=== PATIENT | male | born 1960 | race American Indian/Alaskan Native ===

== ENCOUNTER 2024-12-29 18:13 | Emergency (ER) | payer OTHER, SELFPAY ==
[2024-12-29 18:14] VITALS: BMI 30.7
[2024-12-29 18:20] VITALS: BP 158/90; PULSE 92; RESP 17; TEMP 36.7; O2SAT 96
--- NOTE | 2024-12-29 18:20 | EDNOTE_ITS ---
ED Abdominal Pain RME/HPI General Chief Complaint: General Adult/Misc Complain Stated complaint: INTERMITTENT SHARP PAIN IN R) SIDE SINCE YESTERDAY Time seen by provider: 12/29/24 18:17 Arrival date/time: 12/29/24 18:13 Source: patient Limitations: no limitations RME / HPI RME / HPI narrative: Here today with intermittent right sided abdominal pain and nausea for one day. No emesis. No fevers, chills, or injury. No urinary frequency or dysuria. No hematuria. He has not had this before. No chronic illness. Related Data Previous Rx's ?Medication ?Instructions ?Recorded HYDROCODONE BITARTRATE/APAP 1 tab PO Q4-6HRPRN PRN NIKOLE N ##30 02/20/13 (Vicodin 5/500*) Ibuprofen * (MOTRIN *) 400 mg PO Q6-8HRPRN #30 tabs 02/20/13 ibuprofen 600 mg tablet 600 mg PO TID PRN pain #10 t abs 12/29/24 ondansetron 4 mg disintegrating 4 mg PO Q8H PRN nausea and 12/29/24 tablet vomiting 5 days #10 tabs tamsulosin 0.4 mg capsule (Flomax) 0.4 mg PO QDAY #30 caps 12/29/24 Allergies Allergy/AdvReac Type Severity Reaction Status Date / Time No Known Allergies Allergy Unknown Verified 12/29/24 18:16 Review of Systems Review of Systems Systems Reviewed: All systems reviewed, normal except as documented ED Exam General Limitations: Present no limitations General appearance: Present alert and in no apparent distress Head Head exam: Present atraumatic Eye Eye exam: Present normal appearance, PERRL and EOMI ENT ENT exam: Present normal exam, normal oropharynx and mucous membranes moist Neck Neck exam: Present normal inspection, full ROM and trachea midline Chest Chest inspection: Present normal inspection and symmetric chest wall rise Respiratory Respiratory exam: Present normal lung sounds bilaterally Cardiovascular Cardiovascular exam: Present regular rate, normal rhythm and normal heart sounds Abdominal Exam Abdominal exam: Present soft; Absent distention, tenderness or guarding Extremities Exam Extremities exam: Present normal inspection and full ROM Back Exam Back exam: Present normal inspection and full ROM; Absent CVA tenderness (R) or CVA tenderness (L) Neurological Exam Neurological exam: Present alert, oriented X3 and CN II-XII intact Psychiatric Psychiatric exam: Present normal affect and normal mood Skin Skin exam: Present warm, dry, intact and normal color Course Quality Measures none Orders Category Date Time Status CT abdomen pelvis wo con Stat Exams 12/29/24 20:47 Completed CBC Stat Lab 12/29/24 18:47 Completed CMP [Comprehensive Metabolic Panel] Stat Lab 12/29/24 18:47 Completed Lipase Stat Lab 12/29/24 18:47 Completed UA, C/S IF [Urinalysis, C/S if Indicated] Stat Lab 12/29/24 18:45 Completed Ketorolac Inj [Toradol Inj] Med 12/29/24 18:18 Discontinued 15 mg IM X1 ONE Sodium Chloride 0.9% 1000 ml [Ns] 1,000 ml Med 12/29/24 21:56 Active IV 999 mls/hr Tamsulosin HCl [Flomax] Med 12/29/24 20:48 Discontinued 0.4 mg PO X1 ONE Vital Signs Vital signs: Vital Signs Temperature 98.1 F 12/29/24 18:20 Pulse Rate 92 12/29/24 18:20 Respiratory Rate 17 12/29/24 18:20 Blood Pressure 158/90 H 12/29/24 18:20 Pulse Oximetry (%) 96 12/29/24 18:20 Oxygen Delivery Method Room Air 12/29/24 18:20 Abdominal Pain MDM MDM Narrative MDM Narrative:: Here today with intermittent right sided abdominal pain and nausea for one day. No emesis. No fevers, chills, or injury. No urinary frequency or dysuria. No hematuria. He has not had this before. No chronic illness. Patient had no CVA tenderness. He had no abdominal guarding or rebound tenderness. Workup revealed a very mild leukocytosis at 12.5k. His creatinine is 1.6, glucose is 153. He had microscopic hematuria with the erythrocytes at 417. At this point, a nonenhanced CT of the abdomen of the pelvis was obtained which revealed a 5 mm, right sided ureteral stone. Patient data External records reviewed:: None Clinical information provided by:: patient Social determinants that could affect healthcare access:: none Patient has the following chronic illnesses:: n/a How is presenting disease/condition affected by chronic disease/condition?: no chronic disease Evaluation data The following diagnostics were reviewed and interpreted by me:: lab results (Mild CRYSTAL with a creatinine at 1.6. Microscopic hematuria is present. He has a mild leukocytosis at 12.5k) and radiology exam(s) (CT confirms right-sided 5 m, urethral stone) Lab and/or radiology exams considered but not ordered:: n/a Interpretation Summary: Workup is consistent with CRYSTAL and right sided ureterolithiasis Medications / Prescriptions Medications or Prescriptions considered but not ordered:: n/a Medication administrations:: Medication Administration History Sodium Chloride (Ns) 1,000 mls @ 999 mls/hr IV .Q1H1M ONE Stop: 12/29/24 22:56 Discontinued Medications Ketorolac Tromethamine (Ketorolac Inj 60 Mg/2 Ml Vial) 15 mg IM X1 ONE Stop: 12/29/24 18:19 Last Admin: 12/29/24 19:06 Dose: 15 mg Documented By: KIM Tamsulosin HCl (Tamsulosin Hcl 0.4 Mg Capsule) 0.4 mg PO X1 ONE Stop: 12/29/24 20:49 Last Admin: 12/29/24 21:23 Dose: 0.4 mg Documented By: KIM See above Consultations Consultation(s) initiated? (list below): No Diagnosis Differential diagnosis abdominal pain: abdominal pain, calculus of kidney, constipation and gastroenteritis Most likely diagnosis given after review of the tests above:: Ureterolithiasis Admission Indicated Admission indicated?: indicated Admission Request Was there a request for admission?: No Disposition Plan Disposition Plan: Discharge Discharge Attestation Discharge Attestation: The patient and all family members were given an opportunity to ask questions and understood the discharge instructions. Discharge instructions specifically effects, indications for sooner follow up or return to the emergency department, and the expected course of current diagnosis. Patient condition: Stable Discharge Plan Plan Patient Disposition: HOME (Self Care) Patient condition on transfer: Stable Prescriptions/Referrals Prescriptions/Med Rec: New tamsulosin [Flomax] 0.4 mg capsule 0.4 mg PO QDAY Qty: 30 0RF ibuprofen 600 mg tablet 600 mg PO TID PRN (Reason: pain) Qty: 10 0RF ondansetron 4 mg tablet,disintegrating 4 mg PO Q8H PRN (Reason: nausea and vomiting) 5 Days Qty: 10 0RF No Action HYDROCODONE BITARTRATE/APAP (Vicodin 5/500*) 1 TAB tablet 1 tab PO Q4-6HRPRN PRN (Reason: PAIN) Qty: 30 0RF Ibuprofen * (MOTRIN *) 400 MG tablet 400 mg PO Q6-8HRPRN Qty: 30 0RF Rx Instructions: FOR FEVER OR PAIN Referrals: No Primary/Family,Physician [Primary Care Provider] - In 1 week Problem List Clinical Impression: Ureterolithiasis, CRYSTAL (acute kidney injury) Patient/Caregiver Discharge Instructions Education Materials: ED Kidney Stone w/ Colic Additional Instructions: - Increase oral hydration. - Use the provided medications as prescribed. - Please not hesitate to return anytime for any worsening or emergent changes. Print Language: Yi Stand Alone Forms: [facility]ora Award Info., Patient Portal Info Letter
[2024-12-29 18:51] LABS: Collection Type, Urine Voided
[2024-12-29] MEDS: KETOROLAC INJ 60 MG/2 ML VIAL 15 MG IM (19:06)
[2024-12-29 19:12] LABS: Basophils # (Auto) 0.1 Thou/mm3 (0.0-0.2); Basophils % (Auto) 0 % (0-2.5); Eosinophils # (Auto) 0.3 Thou/mm3 (0.0-0.5); Eosinophils % (Auto) 2 % (0-10); Hematocrit 43.0 % (41.0-53.0); Hemoglobin 14.9 g/dL (13.5-16.0); Immature Granulocytes Auto 0.05 Thou/mm3 (0.00-0.00); Lymphocytes # (Auto) 2.1 Thou/mm3 (1.0-4.8); Lymphocytes % (Auto) 17 % (10-50); Mean Corpuscular HGB Conc 34.7 g/dl (31.0-37.0); Mean Corpuscular Hemoglobin 31.2 pg (25.0-35.0); Mean Corpuscular Volume 90 fL (80-100); Monocytes # (Auto) 0.9 Thou/mm3 (0.0-0.8); Monocytes % (Auto) 7 % (0-12); Neutrophils # (Auto) 9.1 Thou/mm3 (1.8-7.7); Neutrophils % (Auto) 73 % (37-80); Nucleated Red Blood Cell # 0.00 Thou/mm3 (0.00-0.00); Nucleated Red Blood Cell % 0 /100 WBC (0); Platelet Count 281 Thou/mm3 (140-440); RDW Standard Deviation 42.5 fL (35.1-43.9); Red Blood Count 4.77 Miln/mm3 (4.50-5.90); White Blood Count 12.5 Thou/mm3 (3.8-10.6)
[2024-12-29 19:12] LABS: Amorphous Crystals,Urine Present (Absent); Bilirubin,Urine Negative (Negative); Blood,Urine 3+ (Negative); Clarity,Urine Turbid (Clear/Hazy); Color,Urine Yellow (Lt Yel-Yel); Culture Indicated,Urine Not Indicated; Glucose, Urine Negative (Negative); Ketones,Urine Negative (Negative); Leukocyte Esterase,Urine Negative (Negative); Nitrite,Urine Negative (Negative); PH,Urine 6.0 (5.0-7.0); Protein,Urine 1+ (Neg - Trace); RBC,Urine 417 /hpf (0-3); Specific Gravity,Urine 1.034 (1.001-1.035); Squamous Epithelial Cell,Urine < 1 /hpf (0-5); Urobilinogen,Urine Negative mg/dL (0.0-1.0); WBC,Urine 4 /hpf (0-5)
[2024-12-29 19:32] LABS: Alanine Aminotransferase 26 U/L (10-49); Albumin, Serum 4.4 gm/dL (3.4-4.8); Albumin/Globulin Ratio 1.7 (1.2-2.2); Alkaline Phosphatase 80 U/L (46-116); Anion Gap 8 (7-16); Aspartate Amino Transferase 21 U/L (0-34); BUN/Creatinine Ratio 13 Ratio (12-20); Bilirubin,Total 0.6 mg/dL (0.3-1.2); Blood Urea Nitrogen 20 mg/dL (9-23); Calcium 9.9 mg/dL (8.3-10.6); Calcium (Corrected) 9.9 mg/dL (8.5-10.1); Carbon Dioxide 24.0 mMol/L (20.0-31.0); Chloride 108 mMol/L (98-107); Creatinine (Component) 1.6 mg/dL (0.6-1.3); Estimated Creatinine Clearance 57.6 mL/min (>60); Globulin 2.6 gm/dL (2.3-3.5); Glucose 153 mg/dL (74-106); Lipase 38 U/L (12-53); Osmolality,Calculated 285 (275-295); Potassium 4.0 mMol/L (3.4-5.1); Sodium 140 mMol/L (136-145); Total Protein 7.0 gm/dL (5.7-8.2); eGFR 48 See Note
--- NOTE | 2024-12-29 20:47 | XR_ITS ---
Examination: CT abdomen and pelvis without contrast. Coronal 3-D reconstructions. Sagittal 2-D reconstructions. Date and time of exam:December 29, 20245 hours Comparison February 20, 2013 INDICATIONS: Right lower abdominal pain and hematuria today, history kidney stones CTDI: vol (mGy): 10.2 DLP: (mGycm): 646 Technique: Axial images of the abdomen have been obtained, 3 mm slice thickness Intravenous contrast material has not been administered. Low dose protocols were performed. One or more of the following dose reduction techniques were used; automated exposure control, adjustment of the mA and/or KV according to patient size, use of iterative reconstruction technique. Findings: No focal liver or splenic lesions Gallstones No pancreatic mass Perinephric stranding 2 mm right renal calculus Mild right hydronephrosis secondary to 5 mm proximal right ureteral calculus Normal appendix No bowel obstruction Contracted urinary bladder Mild prostatomegaly Fat-containing left inguinal hernia Prostate calcifications including 10 mm calcification in the distribution of the prostatic urethra, sagittal image 110, clinical correlation is advised IMPRESSION: Mild right hydronephrosis secondary to 5 mm proximal right ureteral calculus Suspicious for 10 mm calcification in the distribution of the prostatic urethra, clinical correlation is advised
[2024-12-29] MEDS: TAMSULOSIN HCL 0.4 MG CAPSULE PO (21:23)
[2024-12-29] MEDS: SODIUM CHLORIDE 0.9% 1000 ML 1,000 ML 999 ML IV (21:55)
== END 2024-12-29 23:05 | disposition home or self-care (01) ==
PROVIDERS: Physician Assistant Medical; Emergency Provider Emergency Medicine
DX: N17.9 Acute kidney failure, unspecified (principal); N20.1 Calculus of ureter
CPT/HCPCS: 36415; 74176; 80053; 81001; 83690; 85025; 96360; 96372; 99284; J1885; J7030; A9270